=== PATIENT | female | born 1970 | race Caucasian/White ===

== ENCOUNTER 2023-04-04 11:39 | Outpatient (AMB) | payer OTHER, SELFPAY ==
--- NOTE | 2023-04-04 11:40 | AM.OFFWIN_ITS ---
Intake Vital Signs 3 04/04/23 11:41 Height 5 ft 1 in Weight 201 lb 6 oz BMI 38.0 BP 120/70 Blood Pressure Location Rt brachial Position Sitting Pulse 68 Pulse Source Pulse Oximeter Temp 97.8 F Temp Source Temporal Artery Scan Pulse Oximetry (%) 98 Oxygen Delivery Method Room Air Intake Visit Reasons: [employer]/reaction to injection (lobby) Intake Note: Pt is here c/o having a reaction to Saxcenda weight loss injectible pen. Patient Tobacco Use Status: Never used Tobacco Allergies No Known Allergies Allergy (Verified 04/04/23 11:42) Do you need a note to return to daycare/school/sports/work: No HPI [employer]ING [employer]ER/reaction to injection (lobby) 2 HPI0 Details 52 year old female patient presents toda y with c/o possible injection reaction. States she has been taking Saxenda injections daily for weight loss. She has been taking this for about 4 months without complications. She had never previously injected into her arm however wanted to try rotating injection sites and so on Saturday she gave herself the injection into her left arm. Since then, she has had pain at the injection site and has had mildly itchy arms. She also reports a tingling sensation beneath her bottom lip onto her chin. Denies any use of any new medications or products. She denies any rashes, shortness of breath, weakness, itchy throat. She states she has been mildly achy, however is not sure if she is starting to get a cold. Covid test at home was negative. [facility] Social History Patient Tobacco Use Status: Never used Tobacco Review of Systems Const All systems reviewed & are unremarkable except as noted in HPI and below Physical Exam Vital Signs: Last Vital Signs Temp 97.8 F 04/04/23 11:41 Pulse 68 04/04/23 11:41 BP 120/70 04/04/23 11:41 Pulse Ox 98 04/04/23 11:41 Oxygen Delivery Method Room Air 04/04/23 11:41 BMI result Body Mass Index 38.0 Const General: cooperative, healthy appearing, comfortable and no acute distress HEENT Head: Yes normal to inspection and Yes normocephalic Ears: hearing grossly normal bilaterally General nose exam: Normal external nose present and Normal nares present Face and sinus: Yes normal facial exam Face images: 2 1. sensation of tingling per patient Mouth: Normal oral and palatal mucosa present and moist mucous membranes Throat: Yes posterior oropharynx normal Neck Neck: Yes no lymphadenopathy Resp Effort & Inspection: normal respiratory effort and able to speak in complete sentences Auscultation: clear to auscultation bilaterally Cardio Jugular venous distension: no JVD Palpation: normal PMI Rate: regular rate Rhythm: regular rhythm Skin General skin exam: no rashes or lesions noted Extrem Other: mild tenderness or palpation left upper/inner arm near medication injection site. No redness, warmth, rash noted. General: Yes capillary refill normal and Yes no clubbing, cyanosis or edema Psych Appearance: grossly normal Mental Status: mental status grossly normal Speech and movement: Normal speech and movement present Assessment & Plan Assessment & Plan (1) Medication reaction: Code(s): T50.905A - Adverse effect of unspecified drugs, medicaments and biological substances, initial encounter Qualifiers: Encounter type: initial encounter Qualified Code(s): T50.905A - Adverse effect of unspecified drugs, medicaments and biological substances, initial encounter Plan: This is a possible medication reaction, however patient has since taken the medication twice since symptoms have started without any worsening of symptoms. The only difference is that when patient developed symptoms, she injected into her arm instead of her lower belly as usual. Her symptoms are mild and include intermittent lower arm itching and tingling of her chin. No neuro deficits. No respiratory symptoms. I advised patient to talk to her provider who prescribes the Saxenda for their input, and for now to try some benadryl this evening to see if this alleviates symptoms. If not, I have sent a short course of prednisone to her pharmacy which she can try. We reviewed indications, use, possible s/e of this. If symptoms worsen or new symptoms develop she should return to clinic or go to ED for evaluation. She verbalizes understanding and agrees to plan. Medications: New 2 prednisone 20 mg PO BID 4 tabs 0RF 2 days T50.906F - Adverse effect of unspecified drugs, medicaments and biological substances, initial encounter Coding Level of Care Code Est Pt Level 3 (35701) Diagnoses Adverse effect of drug, initial encounter T50.3V Encounter type: initial encounter
[2023-04-04 11:41] VITALS: BP 120/70; PULSE 68; TEMP 36.6; O2SAT 98; BMI 38.0
== END 2023-04-04 12:28 | disposition home or self-care (01) ==
PROVIDERS: Visit Provider Nurse Practitioner Family
DX: T50.905A Adverse effect of unspecified drugs, medicaments and biological substances, initial encounter (principal)
CPT/HCPCS: 99213

== ENCOUNTER 2023-04-08 08:46 | Outpatient (AMB) | payer OTHER, SELFPAY ==
[2023-04-08 09:38] VITALS: BP 118/72; PULSE 70; TEMP 36.9; O2SAT 97; BMI 38.2
--- NOTE | 2023-04-08 09:38 | AM.OFFWIN_ITS ---
Intake Vital Signs 04/08/23 09:38 Height 5 ft 1 in Weight 202 lb 2 oz BMI 38.2 BP 118/72 Blood Pressure Location Rt brachial Position Sitting Pulse 70 Pulse Source Pulse Oximeter Temp 98.5 F Temp Source Temporal Artery Scan Pulse Oximetry (%) 97 Oxygen Delivery Method Room Air Intake Visit Reasons: EP, right ear pain ([phone]) Intake Note: pt is here for c.o right ear pain Patient Tobacco Use Status: Never used Tobacco Allergies No Known Allergies Allergy (Verified 04/08/23 09:39) Do you need a note to return to daycare/school/sports/work: Yes HPI EP, right ear pain ([phone]) HPI Details 52 year old female patient presents toda for right ear pain and rash on right side of face. I saw her at the clinic 4 days ago when she presented with only a mild, intermittent tingling sensation beneath her bottom lip onto her chin. She reports this rash erupted on her face yesterday and her right ear has had a stabbing pain. The rash is somewhat tender but not itchy. Denies any fever or chills. Denies any use of new products, lotions, etc. Denies any upper respiratory symptoms. [facility] Social History Patient Tobacco Use Status: Never used Tobacco Review of Systems Const All systems reviewed & are unremarkable except as noted in HPI and below Physical Exam Vital Signs: Last Vital Signs Temp 98.5 F 04/08/23 09:38 Pulse 70 04/08/23 09:38 BP 118/72 04/08/23 09:38 Pulse Ox 97 04/08/23 09:38 Oxygen Delivery Method Room Air 04/08/23 09:38 BMI result Body Mass Index 38.2 Const General: cooperative, comfortable and no acute distress HEENT Other: Stabbing right ear pain, right ear canal narrowed and erythematous with purulent discharge. Scabbed vesicles on tragus of right ear with pink, maculopapular rash extending in linear distribution across right cheek. No ocular involvement. No open areas. Intact swallow. Facial movements symmetrical. Tongue is midline. Opens/closes eyes symmetrically. Head: Yes normal to inspection Ears: hearing grossly normal bilaterally Neck Neck: Yes no lymphadenopathy Resp Effort & Inspection: normal respiratory effort and able to speak in complete sentences Auscultation: clear to auscultation bilaterally Cardio Jugular venous distension: no JVD Palpation: normal PMI Rate: regular rate Rhythm: regular rhythm Neuro General: no focal motor deficits Extrem General: Yes capillary refill normal and Yes no clubbing, cyanosis or edema Psych Appearance: grossly normal Mental Status: mental status grossly normal Speech and movement: Normal speech and movement present Assessment & Plan Assessment & Plan (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 Neuro exam is intact has above. I am going to start patient on Prednisone and Valacyclovir and also some cipro/dexa ear drops. We discussed the indications, use, possible side effects of all medications. We discussed indications to go to ED for evaluation, including any worsening of rash or spreading of rash up towards her eye, or any neuro symptoms such as facial drooping, difficulty swallowing. She verbalizes understanding and agrees to plan. 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
== END 2023-04-08 10:32 | disposition home or self-care (01) ==
PROVIDERS: Visit Provider Nurse Practitioner Family
DX: B02.21 Postherpetic geniculate ganglionitis (principal)
CPT/HCPCS: 99213